=== PATIENT | female | born 1955 | race Caucasian/White ===

== ENCOUNTER → 2020-10-23 10:53 | Outpatient (BNVA) | payer MEDICARE, OTHER, SELFPAY | PROVIDERS: Family Provider Family Medicine; Referring Provider Family Medicine; Visit Provider Orthopaedic Surgery | DX: M54.9 Dorsalgia, unspecified (principal) | CPT/HCPCS: 72072; 72110 ==

== ENCOUNTER → 2020-11-17 12:59 | Outpatient (BNVA) | payer MEDICARE, OTHER, SELFPAY | PROVIDERS: Family Provider Family Medicine; Visit Provider Orthopaedic Surgery | DX: Z01.818 Encounter for other preprocedural examination (principal); Z11.52 Encounter for screening for COVID-19 | CPT/HCPCS: 87635 ==

== ENCOUNTER → 2020-12-31 10:57 | Outpatient (BNVA) | payer MEDICARE, OTHER, SELFPAY | PROVIDERS: PCP Family Medicine; Referring Provider Orthopaedic Surgery; Visit Provider Specialist | DX: M25.561 Pain in right knee (principal); M77.8 Other enthesopathies, not elsewhere classified | CPT/HCPCS: 73560; 73565 ==

== ENCOUNTER 2021-01-04 09:49 | Outpatient (CLI) | payer MEDICARE, OTHER, SELFPAY ==
--- NOTE | 2021-01-04 | MR_ITS ---
WS: [id number] MRI RIGHT KNEE HISTORY: PAIN IN UNSPECIFIED KNEE COMPARISON: Radiograph 12/31/2020 Anterior cruciate ligament: Small amount of fluid along the ACL but no full-thickness tear. Posterior cruciate ligament: Intact. Medial collateral ligament: Mild displacement by an extruded meniscus. Posterior lateral corner structures: Intact. Medial menisci: Abnormal shape, size and signal in the posterior meniscus. Small caliber meniscus wit h increased signal throughout the anterior horn is normal. Lateral meniscus: Intact. Normal signal, size and shape. Extensor mechanism: Distal quadriceps tendon and patellar tendons are intact. Fluid and soft tissue: Small suprapatellar joint effusion. No Ocasio's cyst. Osseous and articular structures: Patellofemoral compartment: Normal. Medial compartment: Very minimal narrowing of the medial compartment. No marrow edema. Cartilage is i ntact. Lateral compartment: Mild narrowing of the lateral compartment. No marrow edema. Mild thinning of the cartilage but no full-thickness defect. Elongated fluid collection extending over length of 1.5 cm x 0.5 cm posterior to the medial femoral c ondyle. Suspect this is probably a meniscal cyst associated with an abnormal posterior medial horn. MR/MR knee RT wo con* [id number] IMPRESSION: 1. Complex tear posterior horn medial meniscus. There is an adjacent 1.5 x 0.5 cm cystic collection posterior to the medial femoral condyle which is probably a meniscal cyst. 2. Small joint effusion.
== END 2021-01-04 09:50 | disposition home or self-care (01) ==
PROVIDERS: PCP Family Medicine; Visit Provider Specialist
DX: M25.561 Pain in right knee (principal); S83.241A Other tear of medial meniscus, current injury, right knee, initial encounter; X58.XXXA Exposure to other specified factors, initial encounter; M25.461 Effusion, right knee
CPT/HCPCS: 73721

== ENCOUNTER → 2021-01-14 09:06 | Outpatient (BNVA) | payer MEDICARE, OTHER, SELFPAY | PROVIDERS: PCP Family Medicine; Visit Provider Orthopaedic Surgery | DX: Z20.822 Contact with and (suspected) exposure to COVID-19 (principal); Z01.812 Encounter for preprocedural laboratory examination | CPT/HCPCS: 87635 ==

== ENCOUNTER 2021-01-18 10:01 | Day surgery (SDC) | payer MEDICARE, OTHER, SELFPAY ==
[2021-01-14 10:02] VITALS: BMI 36.0
--- NOTE | 2021-01-14 10:27 | ANES.PREANE2 ---
Pre-Anesthetic Assessment Pre-Anesthetic Assessment: Height/Weight: Height 1.63 m Weight 95.254 kg Preop Diagnosis: Lumbar stenosis Proposed Procedure: Operation Date: 01/18/21 07:00 Proposed Procedures p Lumbar Spine Decompression right l4/l5 87473 M48.062(Not Applicable) - Yg Cabello, DO Was Beta Nicole taken within 24 hours: N/A Was Clonidine taken within 24 hours: N/A Social: Social History: No alcohol and No tobacco Exam: Pre-Anes Outpt Exam: alert, oriented x 3, clear to auscultation bilaterally and regular rate & rhythm Airway: Submandibular: WNL Cervical ROM: WNL MP: 2 Dentition: Partials CV/HEM: CV/HEM: HTN Metabolic: Metabolic: Hyperlipidemia, Morbid obesity and Thyroid Musc/skel: Musc/skel: Fibromyalgia and Lower Back Pain Comments: Chronic pain Anesthetic Plan: ASA status: 3 Anesthesia: General Risk of > 500 ml blood loss (7ml/kg in children): No PFSH Anesthesia PFSH: Family History Sister Cancer Social History Smoking and tobacco status: never smoked Data Anesthesia Cardiac Studies: No Data to Display
[2021-01-18] VITALS (9 sets, daily range): BP systolic 134–199; BP diastolic 67–83; PULSE 63–86; RESP 12–20; TEMP 36.4–37; O2SAT 93–98
--- NOTE | 2021-01-18 | SCC_ITS ---
Procedure Done: Bilateral L4/5 laminectomy with partial facetectomies 12.7 seconds of fluoroscopic guidance, for a cumulative dose of 6.88 mGy, was provided to Dr. Cabello by the radiology department. C-arm images of the lumbar spine were saved for the patient's permanent record. TRISTA
--- NOTE | 2021-01-18 | XR_ITS ---
WS: [id number] C-ARM RADIOGRAPHS SPINE; 2 IMAGES HISTORY: PAIN COMPARISON: None available. Intraoperative imaging during spine fusion. XR/XR lumbar spine 2-3V* [id number] IMPRESSION: Intraoperative imaging during spine fusion.
--- NOTE | 2021-01-18 10:15 | W.PM.OPSUD ---
Surgery/Procedure H&P Update DATE OF PROCEDURE: January 18, 2021 DATE H&P PERFORMED: 01/07/21 H&P UPDATE INFORMATION: I have reviewed H&P completed within last 30 days, I have examined patient prior to procedure and No changes to prior documentation PREOP DIAGNOSIS: Lumbar stenosis PLANNED PROCEDURE: Operation Date: 01/18/21 12:35 Proposed Procedures p Lumbar Spine Decompression right l4/l5 81083 M48.062(Not Applicable) - Yg Cabello DO
[2021-01-18] MEDS: sodium chloride 0.9% 1,000 ML 30 ML IV (10:30)
--- NOTE | 2021-01-18 11:05 | P.ANESUD_ITS ---
Pre-Anesthetic Update Pre-Anesthetic Assessment: Date of Surgery/Procedure: 01/18/21 Preop Cassidy gnosis: Lumbar stenosis Proposed Procedure: Operation Date: 01/18/21 12:35 Proposed Procedures p Lumbar Spine Decompression right l4/l5 05203 M48.062(Not Applicable) - Yg Cabello, DO Any changes to Pre-Anesthetic Assessment?: No Last Intake: Intake Last Liquid Date 01/17/21 Last Liquid Time 21:00 Last Solid Date 01/17/21 Last Solid Time 21:00 Vitals: Temperature 98.6 F 01/18/21 10:18 Pulse Rate 77 01/18/21 10:18 Pulse Rhythm 01/18/21 10:19 Respiratory Rate 18 01/18/21 10:18 Blood Pressure 199/79 01/18/21 10:18 Blood Pressure Dennise n 119 01/18/21 10:18 Pulse Oximetry 97 01/18/21 10:18 Oxygen Delivery Me thod 01/18/21 10:19 Exam: Pre-Anes Outpt Exam: alert, oriented x 3, clear to auscultation bilaterally and regular rate & rhythm Cardiac Studies: No Data to Display
[2021-01-18] MEDS: clindamycin 600 MG/50 ML PREMIX 100 MG IV (11:35)
--- NOTE | 2021-01-18 12:37 | PM.OP ---
Operative Report Date of procedure: January 18, 2021 Pre-op Diagnosis: Lumbar stenosis Post-op diagnosis: same Procedure Done: Bilateral L4/5 laminectomy with partial facetectomies Surgeon: Yg Cabello Anesthesia: General Estimated blood loss (mL): 5 Condition: stable Disposition: PACU Procedure: Bilateral L4/5 laminectomy with partial facetectomies Patient is brought to the operative suite. After undergoing anesthesia they are placed in the supine position. All areas of impingement are well padded. Patient is then prepped and draped in the normal sterile fashion. A skin incision is made over the L4/5 level. This is confirmed under c-arm guidance. A series of dilators are passed and the tubular retractor is docked on the L4 lamina. A bovie is used to clear the soft tissue off the lamina and the L 4/5 facet joint. A high speed kellen is then used to perform the laminectomy and take down the medial aspect of the L 4/5 facet joint. A kerrison rongeure was then used to take down the remaining lamina and smooth the edged of the laminectomy up to the point where the ligamentum flavum attaches. Attention was then brought to the medial aspect of the facet joint. The remaining medial aspect of the superior and inferior aspect of the facet joint were taken down with the kerrison from the pedicle of L4 to L 5. The facet joint had significant hypertrophy. Attention was then brought to the Ligamentum Flavum. The ligament was taken down from the lamina of L4 to L5 and out medially to the remaining facet joint. The ligament was thick. The dura was then exposed. The dura was in good repair. The L4 nerve was then traced with a curette out the L4/5 foramen and found to be adequately decompressed. The L5 nerve was traced with a curette around the L5 pedicle. The lateral recess was opened with a kerrison helping to further decompress the L5 nerve. The tubular retractor was then tilted to the contralateral side. The bovie was used to take down the soft tissue on the spinous process. The high speed kellen was used to take down the spinous process and then the contralateral lamina of L4. The kerrison rongeur was used to take down the remaining lamina to the point where the ligamentum flavum attached and the ligamentum flavum was taken down from L4 to L5. The kerrison rongeur was then used to reach across and take down the medial aspect of the contralateral L4/5 facet joint.The currete was used to trace the contralateral L4 nerve out the L4/5 foramen to make sure it was decompressed adequatesly and the L5 was traced around the L5 pedicle. The lateral recess was opened further with the kerrison to ensure the L5 is adequately decompressed. Wound is then irrigated copiously with saline and surgiflo is used to stop any bleeding. The tubular retractor is removed and the wound is closed with vicryl and monocryl suture. Glue is then used to protect the wound. A sterile dressing is then placed. Patient was then placed in the supine position and transferred to the PACU in stable condition.
--- NOTE | 2021-01-18 12:49 | P.PCN_ITS ---
PACU note PACU note: VSS, Good respiratory effort, report to TANGLED YARN WORKER Post-Anesthesia Exam: awake
--- NOTE | 2021-01-18 12:49 | PM.PACU ---
PACU note PACU note: VSS, Good respiratory effort, report to LINUX ENGINEER Post-Anesthesia Exam: awake
[2021-01-18] MEDS: HYDROcodone-acetaminophen 5-325 mg Tablet 1 TAB PO (13:24)
--- NOTE | 2021-01-18 14:25 | ANE.PACU2 ---
Inpatient post-anesthesia follow up: Airway intact: Yes Vital signs: Temperature 97.8 F Pulse Rate 63 Respiratory Rate 18 Blood Pressure 148/76 Pulse Oximetry 96 Oxygen Delivery Me thod Room Air Oxygen Flow Rate 2 Fraction of Inspir ed Oxygen Hydration adequate: Yes Nausea and vomiting: No Pain level: 2 Mental status: Baseline
== END 2021-01-18 13:59 | disposition home or self-care (01) ==
PROVIDERS: PCP Family Medicine; Visit Provider Orthopaedic Surgery
PROC: (CPT 63005; principal; 2021-01-18 12:15)
DX: M48.061 Spinal stenosis, lumbar region without neurogenic claudication (principal); I10 Essential (primary) hypertension; E78.5 Hyperlipidemia, unspecified; E66.01 Morbid (severe) obesity due to excess calories; Z68.36 Body mass index [BMI] 36.0-36.9, adult; M79.7 Fibromyalgia; G89.29 Other chronic pain; Z79.891 Long term (current) use of opiate analgesic
CPT/HCPCS: 63047; 72100; 76000; 96365; J1100; J2405; J2704; J2710; J3010; J3490; J7030

== ENCOUNTER → 2023-04-14 08:56 | Outpatient (BNVA) | payer MEDICARE, OTHER, SELFPAY | PROVIDERS: PCP Family Medicine; Visit Provider Surgery | DX: K21.9 Gastro-esophageal reflux disease without esophagitis (principal); R10.11 Right upper quadrant pain | CPT/HCPCS: 99204 ==

== ENCOUNTER 2023-04-19 07:29 | Day surgery (SDC) | payer MEDICARE, OTHER, SELFPAY ==
[2023-04-18 08:25] VITALS: BMI 32.1
[2023-04-19 08:04] VITALS: BP 162/67; PULSE 56; RESP 18; TEMP 36.4; O2SAT 96
--- NOTE | 2023-04-19 08:17 | ANES.PREANE2 ---
Pre-Anesthetic Assessment Height/Weight: Height 1.63 m Weight 84.822 kg Temp Pulse Resp BP Pulse Ox O2 Del Method 97.5 F L 56 L 18 162/67 96 Room Air 04/19/23 08:04 04/19/23 08:04 04/19/23 08:04 04/19/23 08:04 04/19/23 08:04 04/19/23 08:04 Operation Date: 04/19/23 08:45 Proposed Procedures p 87815 egd [id number] colon K21.9,Z12.11(Not Applicable) - DO madeline Diallo Colonoscopy(Not Applicable) - [place] June DO Familial anesthetic complications: None Was Beta Nicole taken within 24 hours: N/A Was Clonidine taken within 24 hours: N/A Last intake: Intake Last Liquid Date 04/18/23 Last Liquid Time 23:00 Last Solid Date 04/17/23 Last Solid Time 23:00 Social No alcohol and No tobacco Exam alert, oriented x 3, clear to auscultation bilaterally and regular rate & rhythm Airway Mallampati: Class II Dentition: partials CV/HEM Hypertension Metabolic Diabetes Mellitus, Morbid Obesity and Thyroid Disease Anesthetic Plan ASA status: 3 Anesthesia: MAC Risk of > 500 ml blood loss (7ml/kg in children): No Medications/Allergies Home Medications Medication Instructions Recorded Confirmed Last Taken Type calcium carbonate 500 mg calcium 1,000 mg PO BID 10/23/20 04/18/23 04/18/23 History (1,250 mg) tablet (Calcium 500) estradiol 1 mg tablet (Estrace) 0.5 mg PO DAILY 10/23/20 04/18/23 04/18/23 History etodolac 400 mg tablet 400 mg PO BID 10/23/20 04/18/23 04/18/23 History gabapentin 300 mg capsule 600 mg PO TID 10/23/20 04/18/23 04/18/23 History gemfibrozil 600 mg tablet 600 mg PO BID 10/23/20 04/18/23 04/18/23 History levothyroxine 50 mcg tablet 25 mcg PO DAILY 10/23/20 04/18/23 04/19/23 04:30 History (Levoxyl) lisinopril 20 mg tablet 20 mg PO DAILY 10/23/20 04/18/23 04/18/23 History lovastatin 40 mg tablet 40 mg PO DAILY 10/23/20 04/18/23 04/18/23 History melatonin 5 mg capsule 10 mg PO DAILY 10/23/20 04/18/23 04/18/23 History multivitamin 1 tab PO DAILY 10/23/20 04/18/23 04/18/23 History omega-3 fatty acids 500 mg capsule 500 mg PO BID 10/23/20 04/18/23 04/18/23 History paroxetine HCl 20 mg tablet 20 mg PO DAILY 10/23/20 04/18/23 04/18/23 History ropinirole 1 mg tablet 1 mg PO DAILY 10/23/20 04/18/23 04/18/23 History vitamin B complex (B 1 tab PO DAILY 10/23/20 04/18/23 04/18/23 History Complex-Vitamin B12 tablet) docusate sodium 50 mg capsule 50 mg PO DAILY 01/14/21 04/18/23 04/18/23 History fluticasone propionate 50 1 spray intranasal BID 01/14/21 04/19/23 2 Weeks Ago History mcg/actuation nasal ~04/05/23 spray,suspension vit D3-folic gufl-K6-U5-B12 500 mg PO DAILY 01/14/21 04/18/23 04/18/23 History Lactobac 51-Bifidobac 1 cap PO 02/04/21 02/04/21 04/17/23 History 3-L.lactis-S.thermophilus 4 billion cell capsule (Daily Probiotic (10 Strains)) naproxen 500 mg tablet 500 mg PO BID 04/14/23 04/18/23 04/18/23 History pantoprazole 40 mg tablet,delayed 40 mg PO BID 6 weeks #84 tabs 04/14/23 04/18/23 04/18/23 Rx release (Protonix) Allergies Allergy/AdvReac Type Severity Reaction Status Date / Time magnesium Allergy Intermediate unknown Verified 04/18/23 08:12 niacin Allergy Intermediate unknown Verified 04/18/23 08:12 aspirin Allergy Mild unknown Verified 04/18/23 08:12 cefixime [From Suprax] Allergy Mild unknown Verified 04/18/23 08:12 Iodine and Iodide Containing Allergy Mild unknown Verified 04/18/23 08:12 Produc Penicillins Allergy Mild unknown Verified 04/18/23 08:12 tramadol [From Ultram] Allergy Mild unknown Verified 04/18/23 08:12 [facility] Anesthesia Medical History (Updated 04/14/23 @ 10:02 by [place] June DO) Arthralgia Chest pain Chronic pain in left foot COPD (chronic obstructive pulmonary disease) Depression Fibromyalgia GERD (gastroesophageal reflux disease) History of IBS Hypertension Hypothyroidism Osteoarthritis Restless leg Surgical History (Updated 04/14/23 @ 10:02 by [place] June DO) History of appendectomy History of cholecystectomy History of hysterectomy Family History Sister Cancer Social History Smoking and tobacco status: never smoked Data Anesthesia Cardiac Studies: No Data to Display
[2023-04-19] MEDS: sodium chloride 0.9% 1,000 ML 30 ML IV (08:19)
[2023-04-19 08:56] LABS: Glucose Point of Care 103 mg/dL (70-110)
--- NOTE | 2023-04-19 09:00 | W.PM.OPSUD ---
Surgery/Procedure H&P Update DATE OF PROCEDURE: April 19, 2023 DATE H&P PERFORMED: 04/14/23 H&P UPDATE INFORMATION: I have reviewed H&P completed within last 30 days, I have examined patient prior to procedure and No changes to prior documentation PLANNED PROCEDURE: Operation Date: 04/19/23 08:45 Proposed Procedures p 60338 egd [id number] colon K21.9,Z12.11(Not Applicable) - DO madeline Diallo Colonoscopy(Not Applicable) - [place] June DO
[2023-04-19 09:23] VITALS: BP 111/45; PULSE 56; RESP 16; TEMP 36.2; O2SAT 97
[2023-04-19 09:37] VITALS: BP 138/67; PULSE 54; RESP 16; O2SAT 93
--- NOTE | 2023-04-19 10:25 | ANE.PACU2 ---
Inpatient post-anesthesia follow up: Airway intact: Yes Vital signs: Temperature 97.2 F Pulse Rate 54 Respiratory Rate 16 Blood Pressure 138/67 Pulse Oximetry 93 Oxygen Delivery Me thod Room Air Oxygen Flow Rate Fraction of Inspir ed Oxygen Hydration adequate: Yes Nausea and vomiting: No Pain level: 1 Mental status: Baseline
== END 2023-04-19 10:26 | disposition home or self-care (01) ==
PROVIDERS: PCP Family Medicine; Visit Provider Surgery
PROC: 0DJ08ZZ Inspection of Upper Intestinal Tract, Via Natural or Artificial Opening Endoscopic (ICD-10-PCS; CPT 43235; principal; 2023-04-19 08:45)
PROC: 0DJD8ZZ Inspection of Lower Intestinal Tract, Via Natural or Artificial Opening Endoscopic (ICD-10-PCS; CPT 45378; 2023-04-19 08:45)
DX: Z12.11 Encounter for screening for malignant neoplasm of colon (principal); K21.9 Gastro-esophageal reflux disease without esophagitis; K29.50 Unspecified chronic gastritis without bleeding; I10 Essential (primary) hypertension; E11.9 Type 2 diabetes mellitus without complications; E66.01 Morbid (severe) obesity due to excess calories; Z68.32 Body mass index [BMI] 32.0-32.9, adult; J44.9 Chronic obstructive pulmonary disease, unspecified; F32.A Depression, unspecified; M79.7 Fibromyalgia; E03.9 Hypothyroidism, unspecified; M19.90 Unspecified osteoarthritis, unspecified site
CPT/HCPCS: 36416; 43239; 45378; 82962; 88305; 88342; G0121; J2704; J7030

== ENCOUNTER → 2023-05-02 10:23 | Outpatient (BNVA) | payer MEDICARE, OTHER, SELFPAY | PROVIDERS: PCP Family Medicine; Visit Provider Surgery | DX: Z09 Encounter for follow-up examination after completed treatment for conditions other than malignant neoplasm (principal); R10.11 Right upper quadrant pain; K21.9 Gastro-esophageal reflux disease without esophagitis; K29.70 Gastritis, unspecified, without bleeding; K59.00 Constipation, unspecified | CPT/HCPCS: 99214 ==

== ENCOUNTER → 2023-07-25 08:29 | Outpatient (BNVA) | payer MEDICARE, OTHER, SELFPAY | PROVIDERS: PCP Family Medicine; Visit Provider Surgery | DX: Z09 Encounter for follow-up examination after completed treatment for conditions other than malignant neoplasm (principal); R10.11 Right upper quadrant pain; K21.9 Gastro-esophageal reflux disease without esophagitis; K29.70 Gastritis, unspecified, without bleeding; K59.00 Constipation, unspecified | CPT/HCPCS: 99214 ==

== ENCOUNTER 2024-04-17 07:42 | Day surgery (SDC) | payer MEDICARE, OTHER, SELFPAY ==
[2024-04-17 07:55] VITALS: BP 133/79; PULSE 66; RESP 18; TEMP 36.6; O2SAT 96
[2024-04-17] MEDS: sodium chloride 0.9% 1,000 ML 30 ML IV (08:09)
[2024-04-17 08:10] LABS: Glucose Point of Care 128 mg/dL (70-110)
--- NOTE | 2024-04-17 08:49 | PM.HP ---
Providers/Chief Complaint Primary Care Provider: José Miguel Aguirre Chief Complaint: K59.00 History of Present Illness Thomas Cali is a 68 year old female Review of Systems General: Reports: 10 or more systems reviewed and unremarkable except in HPI and below Medications/Allergies Home Medications Medication Instructions Recorded Confirmed Last Taken Type calcium carbonate (Calcium 500) 1,000 mg PO BID 10/23/20 04/17/24 04/16/24 History estradiol 1 mg tablet (Estrace) 2 mg PO DAILY 10/23/20 04/17/24 04/16/24 History etodolac 400 mg tablet (Lodine) 400 mg PO BID 10/23/20 04/17/24 04/16/24 History gabapentin 300 mg capsule 600 mg PO QID 10/23/20 04/17/24 04/16/24 History gemfibrozil 600 mg tablet 600 mg PO BID 10/23/20 04/17/24 04/16/24 History levothyroxine 50 mcg tablet 25 mcg PO DAILY 10/23/20 04/11/24 04/17/24 History (Levoxyl) lisinopril 20 mg tablet 20 mg PO DAILY 10/23/20 04/17/24 04/16/24 History lovastatin 40 mg tablet 40 mg PO DAILY 10/23/20 04/17/24 04/16/24 History melatonin 5 mg capsule 10 mg PO DAILY 10/23/20 04/17/24 04/16/24 History multivitamin 1 tab PO DAILY 10/23/20 04/17/24 04/16/24 History omega-3 fatty acids 500 mg capsule 500 mg PO BID 10/23/20 04/17/24 04/16/24 History paroxetine HCl 20 mg tablet (Paxil) 20 mg PO DAILY 10/23/20 04/17/24 04/16/24 History ropinirole 1 mg tablet 1 mg PO DAILY 10/23/20 04/17/24 04/16/24 History fluticasone propionate 50 1 spray intranasal BID PRN Allergy 01/14/21 04/17/24 04/16/24 History mcg/actuation nasal Symptoms spray,suspension vit D3-folic vmca-S4-L0-B12 500 mg PO DAILY 01/14/21 04/17/24 04/16/24 History Lactobac 51-Bifidobac 1 cap PO DAILY 02/04/21 04/17/2404/16/24 History 3-L.lactis-S.thermophilus 4 billion cell capsule (Daily Probiotic (10 Strains)) naproxen 500 mg tablet 500 mg PO BID 04/14/23 04/17/24 04/16/24 History pantoprazole 40 mg tablet,delayed 40 mg PO BID 30 days #60 tabs 10/24/23 04/17/24 04/16/24 Rx release (Protonix) metformin 500 mg tablet 500 mg PO BID 02/12/24 04/17/24 04/16/24 History ferrous sulfate 325 mg (65 mg 325 mg PO DAILY 04/11/24 04/17/24 04/16/24 History iron) tablet (iron) Allergies Allergy/AdvReac Type Severity Reaction Status Date / Time magnesium Allergy Intermediate unknown Verified 04/11/24 09:51 niacin Allergy Intermediate unknown Verified 04/11/24 09:51 aspirin Allergy Mild unknown Verified 04/11/24 09:51 cefixime [From Suprax] Allergy Mild unknown Verified 04/11/24 09:51 Iodine and Iodide Containing Allergy Mild unknown Verified 04/11/24 09:51 Produc Penicillins Allergy Mild unknown Verified 04/11/24 09:51 tramadol [From Ultram] Allergy Mild unknown Verified 04/11/24 09:51 PFSH Acute PFSH: Medical History COPD (chronic obstructive pulmonary disease) Chronic pain in left foot Chest pain Arthralgia Hypothyroidism GERD (gastroesophageal reflux disease) Restless leg Depression Osteoarthritis History of IBS Fibromyalgia Hypertension Surgical History History of cholecystectomy History of hysterectomy History of appendectomy Family History Sister Cancer Social History Smoking and tobacco/nicotine status: never used tobacco/nicotine Vitals/I&O/Wt Last Vital Signs Temp 97.9 F 04/17/24 07:55 Pulse 66 04/17/24 07:55 Resp 18 04/17/24 07:55 BP 133/79 04/17/24 07:55 Pulse Ox 96 04/17/24 07:55 O2 Del Method Room Air 04/17/24 07:55 Weight last 48 hrs Weight 203 lb A&P Assessment and plan (1) Colon cancer screening: Plan Colonoscopy Attestations Medical Necessity Statement*: Home Coding Level of Care Code Acute Code for Chg Fwd Diagnoses Colon cancer screening Z12.11
--- NOTE | 2024-04-17 08:55 | P.ANESASSM_ITS ---
Pre-Anesthetic Assessment Height/Weight: Height 1.63 m Weight 92.079 kg Temp Pulse Resp BP Pulse Ox O2 Del Method 97.9 F 66 18 133/79 96 Room Air 04/17/24 07:55 04/17/24 07:55 04/17/24 07:55 04/17/24 07:55 04/17/24 07:55 04/17/24 07:55 Preop Diagnosis: Gerd, screening Operation Date: 04/17/24 09:15 Proposed Procedures p Colonoscopy 32720, G0105, K29.70, K59.00(Not Applicable) - [place] June DO Familial anesthetic complications: none Was Beta Nicole taken within 24 hours: N/A Was Clonidine taken within 24 hours: N/A Last intake: Intake Last Liquid Date 04/16/24 Last Liquid Time 22:00 Last Solid Date 04/15/24 Last Solid Time 23:00 Social No alcohol and No tobacco Exam alert, oriented x 3 and clear to auscultation bilaterally Airway Mallampati: Class III Dentition: partials History/ROS No significant history except as noted Pulmonary Sleep Apnea (compliant with CPAP) CV/HEM Hypertension None reported Hepatic None reported GI Gastroesophageal Reflux Disease (well controlled with diet) Metabolic Thyroid Disease [facility] [place], [place] None reported Neuropsych None reported Anesthetic Plan ASA status: 3 Anesthesia: Anesthesia Evaluation and MAC Risk of > 500 ml blood loss (7ml/kg in children): No Medications/Allergies Home Medications Medication Instructions Recorded Confirmed Last Taken Type calcium carbonate (Calcium 500) 1,000 mg PO BID 10/23/20 04/17/24 04/16/24 History estradiol 1 mg tablet (Estrace) 2 mg PO DAILY 10/23/20 04/17/24 04/16/24 History etodolac 400 mg tablet (Lodine) 400 mg PO BID 10/23/20 04/17/24 04/16/24 History gabapentin 300 mg capsule 600 mg PO QID 10/23/20 04/17/24 04/16/24 History gemfibrozil 600 mg tablet 600 mg PO BID 10/23/20 04/17/24 04/16/24 History levothyroxine 50 mcg tablet 25 mcg PO DAILY 10/23/20 04/11/24 04/17/24 History (Levoxyl) lisinopril 20 mg tablet 20 mg PO DAILY 0304/17/24 04/16/24 History lovastatin 40 mg tablet 40 mg PO DAILY 10/23/20 04/17/24 04/16/24 History melatonin 5 mg capsule 10 mg PO DAILY 10/23/20 04/17/24 04/16/24 History multivitamin 1 tab PO DAILY 10/23/20 04/17/24 04/16/24 History omega-3 fatty acids 500 mg capsule 500 mg PO BID 10/23/20 04/17/24 04/16/24 History paroxetine HCl 20 mg tablet (Paxil) 20 mg PO DAILY 10/23/20 04/17/24 04/16/24 History ropinirole 1 mg tablet 1 mg PO DAILY 10/23/20 04/17/24 04/16/24 History fluticasone propionate 50 1 spray intranasal BID PRN Allergy 01/14/21 04/17/24 04/16/24 History mcg/actuation nasal Symptoms spray,suspension vit D3-folic ncnc-D4-P0-B12 500 mg PO DAILY 01/14/21 04/17/24 04/16/24 History Lactobac 51-Bifidobac 1 cap PO DAILY 02/04/21 04/17/24 04/16/24 History 3-L.lactis-S.thermophilus 4 billion cell capsule (Daily Probiotic (10 Strains)) naproxen 500 mg tablet 500 mg PO BID 04/14/23 04/17/24 04/16/24 History pantoprazole 40 mg tablet,delayed 40 mg PO BID 30 days #60 tabs 10/24/2304/16/24 Rx release (Protonix) metformin 500 mg tablet 500 mg PO BID 02/12/24 04/17/24 04/16/24 History ferrous sulfate 325 mg (65 mg 325 mg PO DAILY 04/11/24 04/17/24 04/16/24 History iron) tablet (iron) Allergies Allergy/AdvReac Type Severity Reaction Status Date / Time magnesium Allergy Intermediate unknown Verified 04/11/24 09:51 niacin Allergy Intermediate unknown Verified 04/11/24 09:51 aspirin Allergy Mild unknown Verified 04/11/24 09:51 cefixime [From Suprax] Allergy Mild unknown Verified 04/11/24 09:51 Iodine and Iodide Containing Allergy Mild unknown Verified 04/11/24 09:51 Produc Penicillins Allergy Mild unknown Verified 04/11/24 09:51 tramadol [From Ultram] Allergy Mild unknown Verified 04/11/24 09:51 Current Medications Generic Name Dose Route Start Last Admin Trade Name Lei PRN Reason Stop Dose Admin Sodium Chloride 1,000 mls @ 30 mls/hr 04/17/24 08:00 04/17/24 08:09 Sodium Chloride 0.9% IV 04/18/24 07:59 30 mls/hr .Q24H CAMRON Administration PFSH Anesthesia Medical History COPD (chronic obstructive pulmonary disease) Chronic pain in left foot Chest pain Arthralgia Hypothyroidism GERD (gastroesophageal reflux disease) Restless leg Depression Osteoarthritis History of IBS Fibromyalgia Hypertension Surgical History History of cholecystectomy History of hysterectomy History of appendectomy Family History Sister Cancer Social History Smoking and tobacco/nicotine status: never used tobacco/nicotine Data Anesthesia Cardiac Studies: No Data to Display
[2024-04-17 09:43] VITALS: BP 131/58; PULSE 67; RESP 16; TEMP 36.4; O2SAT 95
[2024-04-17 09:55] VITALS: BP 123/53; PULSE 66; RESP 18; O2SAT 95
--- NOTE | 2024-04-17 10:25 | ANE.PACU2 ---
Inpatient post-anesthesia follow up: Airway intact: Yes Vital signs: Temperature 97.6 F Pulse Rate 66 Respiratory Rate 18 Blood Pressure 123/53 Pulse Oximetry 95 Oxygen Delivery Me thod Room Air Oxygen Flow Rate 2 Fraction of Inspir ed Oxygen Hydration adequate: Yes Nausea and vomiting: No Pain level: 1 Mental status: Baseline
== END 2024-04-17 10:25 | disposition home or self-care (01) ==
PROVIDERS: PCP Family Medicine; Visit Provider Surgery
PROC: 0DJD8ZZ Inspection of Lower Intestinal Tract, Via Natural or Artificial Opening Endoscopic (ICD-10-PCS; CPT 45378; principal; 2024-04-17 09:15)
DX: Z12.11 Encounter for screening for malignant neoplasm of colon (principal); K57.30 Diverticulosis of large intestine without perforation or abscess without bleeding; K64.8 Other hemorrhoids; Z79.84 Long term (current) use of oral hypoglycemic drugs; J44.9 Chronic obstructive pulmonary disease, unspecified; E03.9 Hypothyroidism, unspecified; K21.9 Gastro-esophageal reflux disease without esophagitis; M81.0 Age-related osteoporosis without current pathological fracture; M79.7 Fibromyalgia; I10 Essential (primary) hypertension; G47.30 Sleep apnea, unspecified
CPT/HCPCS: 36416; 82962; G0121; J2704; J7030

== ENCOUNTER → 2024-09-09 08:00 | Outpatient (BNVA) | payer MEDICARE, OTHER, SELFPAY | PROVIDERS: PCP Family Medicine; Visit Provider Surgery | DX: K21.9 Gastro-esophageal reflux disease without esophagitis (principal); R10.11 Right upper quadrant pain; K29.70 Gastritis, unspecified, without bleeding; K59.04 Chronic idiopathic constipation | CPT/HCPCS: 99214 ==

== ENCOUNTER 2024-09-18 06:13 | Day surgery (SDC) | payer MEDICARE, SELFPAY ==
[2024-09-18 06:34] VITALS: BP 127/72; PULSE 78; RESP 17; TEMP 36.2; O2SAT 97; BMI 33.6
[2024-09-18] MEDS: sodium chloride 0.9% 500 ML 15 ML IV (06:40)
[2024-09-18 06:45] LABS: Glucose Point of Care 143 mg/dL (70-110)
--- NOTE | 2024-09-18 07:22 | ANES.PREANE2 ---
Pre-Anesthetic Assessment Height/Weight: Height 1.63 m Weight 88.904 kg Temp Pulse Resp BP Pulse Ox O2 Del Method 97.2 F L 78 17 127/72 97 Room Air 09/18/24 06:34 09/18/24 06:34 09/18/24 06:34 09/18/24 06:34 09/18/24 06:34 09/18/24 06:34 Preop Diagnosis: GERD Operation Date: 09/18/24 07:30 Proposed Procedures p EGD 91135, 95695, G0121, K21.9, Z12.11(Not Applicable) - [place] June DO s Colonoscopy(Not Applicable) - [place] June DO Was Beta Nicole taken within 24 hours: N/A Was Clonidine taken within 24 hours: N/A Last intake: Intake Last Liquid Date 09/17/24 Last Liquid Time 23:00 Last Solid Date 09/15/24 Last Solid Time 17:00 Social No alcohol and No tobacco Exam alert, oriented x 3, clear to auscultation bilaterally and regular rate & rhythm Airway Submandibular: within normal limits Cervical ROM: within normal limits Mallampati: Class III Dentition: partials Comments: Comments: upper 4 History/ROS No significant history except as noted Pulmonary Asthma and Chronic Obstructive Pulmonary Disease CV/HEM Hypertension GI Gastroesophageal Reflux [place] [facility] [place] reported Neuropsych Depression Anesthetic Plan ASA status: 3 Anesthesia: MAC Medications/Allergies Home Medications ?Medication ?Instructions ?Recorded ?Confirmed ?Last Taken ?Type calcium carbonate (Calcium 500) 1,000 mg PO BID 10/23/20 09/18/24 09/17/24 History estradiol 1 mg tablet (Estrace) 2 mg PO DAILY 10/23/20 09/18/24 09/17/24 History gabapentin 300 mg capsule 600 mg PO QID 10/23/20 09/18/24 09/17/24 History gemfibrozil 600 mg tablet 600 mg PO BID 10/23/20 09/18/24 09/17/24 History levothyroxine 50 mcg tablet 25 mcg PO DAILY 10/23/20 09/18/24 09/18/24 History (Levoxyl) lisinopril 20 mg tablet 20 mg PO DAILY 10/23/20 09/18/24 09/17/24 History lovastatin 40 mg tablet 40 mg PO DAILY 10/23/20 09/18/24 09/17/24 History melatonin 5 mg capsule 10 mg PO DAILY 10/23/20 09/18/24 09/17/24 History multivitamin 1 tab PO DAILY 10/23/20 09/18/24 09/17/24 History omega-3 fatty acids 500 mg capsule 500 mg PO BID 10/23/20 09/18/24 09/17/24 History paroxetine HCl 20 mg tablet (Paxil) 20 mg PO DAILY 10/23/20 09/18/24 09/17/24 History fluticasone propionate 50 1 spray intranasal BID PRN Allergy 01/14/21 09/18/24 09/15/24 History mcg/actuation nasal Symptoms spray,suspension vit D3-folic [id number] 500 mg PO DAILY 01/14/21 09/18/24 09/17/24 History naproxen 500 mg tablet 500 mg PO BID 04/14/23 09/18/24 09/15/24 History Held on 09/18/24. Instructions: Resume on 09/20/24. metformin 500 mg tablet 500 mg PO BID 02/12/24 09/16/24 09/15/24 History ferrous sulfate 325 mg (65 mg 325 mg PO DAILY 04/11/24 09/18/24 09/17/24 History iron) tablet (iron) EB-N6 1 tab PO DAILY 09/09/24 09/18/24 09/17/24 History cholecalciferol (vitamin D3) 125 125 mcg PO DAILY 09/09/24 09/18/24 09/17/24 History mcg (5,000 unit) capsule gentamicin 0.1 % topical cream 1 applic topical BID 09/09/24 09/18/24 09/17/24 History lubiprostone 24 mcg capsule 24 mcg PO BID 30 days #60 caps 09/09/24 09/18/24 09/17/24 Rx (Amitiza) magnesium 250 mg tablet 250 mg PO DAILY 09/09/24 09/18/24 09/17/24 History pilocarpine HCl 5 mg tablet 5 mg PO TID 09/09/24 09/18/24 09/17/24 History ropinirole 1 mg tablet 2 mg PO BID 09/09/24 09/18/24 09/17/24 History simethicone 125 mg capsule (Gas 125 mg PO DAILY PRN Gastric Reflux 09/09/24 09/18/24 09/17/24 History Relief (simethicone)) triamcinolone acetonide 0.1 % 1 applic topical BID PRN Itching 09/09/24 09/18/24 09/15/24 History topical cream pantoprazole 40 mg tablet,delayed 40 mg PO BID 3 months #180 tabs 09/18/24 Unknown Rx release sucralfate 1 gram tablet 1 g PO BID 4 weeks #56 tabs 09/18/24 Unknown Rx Allergies Allergy/AdvReac Type Severity Reaction Status Date / Time magnesium Allergy Intermediate unknown Verified 09/16/24 10:02 niacin Allergy Intermediate unknown Verified 09/16/24 10:02 aspirin Allergy Mild unknown Verified 09/16/24 10:02 cefixime (From Suprax) Allergy Mild unknown Verified 09/16/24 10:02 Iodine and Iodide Containing Allergy Mild unknown Verified 09/16/24 10:02 Produc Penicillins Allergy Mild unknown Verified 09/16/24 10:02 tramadol (From Ultram) Allergy Mild unknown Verified 09/16/24 10:02 Current Medications Generic Name Dose Route Start Last Admin Trade Name Freq PRN Reason Stop Dose Admin Sodium Chloride 500 mls @ 15 mls/hr 09/18/24 06:19 09/18/24 06:40 Sodium Chloride 0.9% IV 09/19/24 06:18 15 mls/hr .Q24H PRN Administration COLONOSCOPY FLUIDS PFSH Anesthesia Medical History (Updated 09/09/24 @ 08:54 by [place] June DO) COPD (chronic obstructive pulmonary disease) Chronic pain in left foot Chest pain Arthralgia Hypothyroidism GERD (gastroesophageal reflux disease) Restless leg Depression Osteoarthritis History of IBS Fibromyalgia Hypertension Surgical History (Updated 09/09/24 @ 08:54 by [place] June DO) History of lumbar surgery History of bunionectomy Hx of colonoscopy 04/17/24 Dr June History of esophagogastroduodenoscopy (EGD) 04/19/23 History of cholecystectomy History of hysterectomy History of appendectomy Family History Sister Cancer Social History Smoking and tobacco/nicotine status: never used tobacco/nicotine Data Anesthesia Cardiac Studies: No Data to Display
--- NOTE | 2024-09-18 07:41 | W.PM.OPSUD ---
Surgery/Procedure H&P Update DATE OF PROCEDURE: September 18, 2024 DATE H&P PERFORMED: 09/09/24 H&P UPDATE INFORMATION: I have reviewed H&P completed within last 30 days, I have examined patient prior to procedure and No changes to prior documentation PREOP DIAGNOSIS: GERD PLANNED PROCEDURE: Operation Date: 09/18/24 07:30 Proposed Procedures p EGD 02541, 22596, G0121, K21.9, Z12.11(Not Applicable) - DO madeline Diallo Colonoscopy(Not Applicable) - [place] June DO
[2024-09-18 08:22] VITALS: BP 108/56; PULSE 77; RESP 18; TEMP 36.1; O2SAT 94
--- NOTE | 2024-09-18 08:34 | ANES.PREANE2 ---
Pre-Anesthetic Assessment Height/Weight: Height 1.63 m Weight 88.904 kg Temp Pulse Resp BP Pulse Ox O2 Del Method O2 Flow Rate 97 F L 77 18 108/56 94 Nasal Cannula 2 09/18/24 08:22 09/18/24 08:22 09/18/24 08:22 09/18/24 08:22 09/18/24 08:22 09/18/24 08:22 09/18/24 08:22 Preop Diagnosis: GERD Operation Date: 09/18/24 07:30 Proposed Procedures p EGD 01808, 62013, G0121, K21.9, Z12.11(Not Applicable) - [place] June DO s Colonoscopy(Not Applicable) - [place] June DO Was Beta Nicole taken within 24 hours: N/A Was Clonidine taken within 24 hours: N/A Last intake: Intake Last Liquid Date 09/17/24 Last Liquid Time 23:00 Last Solid Date 09/15/24 Last Solid Time 17:00 Social No alcohol and No tobacco Exam alert, oriented x 3, clear to auscultation bilaterally and regular rate & rhythm Airway Submandibular: within normal limits Cervical ROM: within normal limits Mallampati: Class III Dentition: partials Comments: Comments: upper 4 History/ROS No significant history except as noted Pulmonary Asthma and Chronic Obstructive Pulmonary Disease CV/HEM Hypertension GI Gastroesophageal Reflux Disease [facility] [place] reported Neuropsych Depression Anesthetic Plan ASA status: 3 Anesthesia: MAC Medications/Allergies Home Medications ?Medication ?Instructions ?Recorded ?Confirmed ?Last Taken ?Type calcium carbonate (Calcium 500) 1,000 mg PO BID 10/23/20 09/18/24 09/17/24 History estradiol 1 mg tablet (Estrace) 2 mg PO DAILY 10/23/20 09/18/24 09/17/24 History gabapentin 300 mg capsule 600 mg PO QID 10/23/20 09/18/24 09/17/24 History gemfibrozil 600 mg tablet 600 mg PO BID 10/23/20 09/18/24 09/17/24 History levothyroxine 50 mcg tablet 25 mcg PO DAILY 10/23/20 09/18/24 09/18/24 History (Levoxyl) lisinopril 20 mg tablet 20 mg PO DAILY 10/23/20 09/18/24 09/17/24 History lovastatin 40 mg tablet 40 mg PO DAILY 10/23/20 09/18/24 09/17/24 History melatonin 5 mg capsule 10 mg PO DAILY 10/23/20 09/18/24 09/17/24 History multivitamin 1 tab PO DAILY 10/23/20 09/18/24 09/17/24 History omega-3 fatty acids 500 mg capsule 500 mg PO BID 10/23/20 09/18/24 09/17/24 History paroxetine HCl 20 mg tablet (Paxil) 20 mg PO DAILY 10/23/20 09/18/24 09/17/24 History fluticasone propionate 50 1 spray intranasal BID PRN Allergy 01/14/21 09/18/24 09/15/24 History mcg/actuation nasal Symptoms spray,suspension vit D3-folic [id number] 500 mg PO DAILY 01/14/21 09/18/24 09/17/24 History naproxen 500 mg tablet 500 mg PO BID 04/14/23 09/18/24 09/15/24 History Held on 09/18/24. Instructions: Resume on 09/20/24. metformin 500 mg tablet 500 mg PO BID 02/12/24 09/16/24 09/15/24 History ferrous sulfate 325 mg (65 mg 325 mg PO DAILY 04/11/24 09/18/24 09/17/24 History iron) tablet (iron) EB-N6 1 tab PO DAILY 09/09/24 09/18/24 09/17/24 History cholecalciferol (vitamin D3) 125 125 mcg PO DAILY 09/09/24 09/18/24 09/17/24 History mcg (5,000 unit) capsule gentamicin 0.1 % topical cream 1 applic topical BID 09/09/24 09/18/24 09/17/24 History lubiprostone 24 mcg capsule 24 mcg PO BID 30 days #60 caps 09/09/24 09/18/24 09/17/24 Rx (Amitiza) magnesium 250 mg tablet 250 mg PO DAILY 09/09/24 09/18/24 09/17/24 History pilocarpine HCl 5 mg tablet 5 mg PO TID 09/09/24 09/18/24 09/17/24 History ropinirole 1 mg tablet 2 mg PO BID 09/09/24 09/18/24 09/17/24 History simethicone 125 mg capsule (Gas 125 mg PO DAILY PRN Gastric Reflux 09/09/24 09/18/24 09/17/24 History Relief (simethicone)) triamcinolone acetonide 0.1 % 1 applic topical BID PRN Itching 09/09/24 09/18/24 09/15/24 History topical cream pantoprazole 40 mg tablet,delayed 40 mg PO BID 3 months #180 tabs 09/18/24 Unknown Rx release sucralfate 1 gram tablet 1 g PO BID 4 weeks #56 tabs 09/18/24 Unknown Rx Allergies Allergy/AdvReac Type Severity Reaction Status Date / Time magnesium Allergy Intermediate unknown Verified 09/16/24 10:02 niacin Allergy Intermediate unknown Verified 09/16/24 10:02 aspirin Allergy Mild unknown Verified 09/16/24 10:02 cefixime (From Suprax) Allergy Mild unknown Verified 09/16/24 10:02 Iodine and Iodide Containing Allergy Mild unknown Verified 09/16/24 10:02 Produc Penicillins Allergy Mild unknown Verified 09/16/24 10:02 tramadol (From Ultram) Allergy Mild unknown Verified 09/16/24 10:02 Current Medications Generic Name Dose Route Start Last Admin Trade Name Freq PRN Reason Stop Dose Admin Sodium Chloride 500 mls @ 15 mls/hr 09/18/24 06:19 09/18/24 08:27 Sodium Chloride 0.9% IV 09/19/24 06:18 Infused .Q24H PRN Infusion COLONOSCOPY FLUIDS PFSH Anesthesia Medical History (Updated 09/09/24 @ 08:54 by [place] June DO) COPD (chronic obstructive pulmonary disease) Chronic pain in left foot Chest pain Arthralgia Hypothyroidism GERD (gastroesophageal reflux disease) Restless leg Depression Osteoarthritis History of IBS Fibromyalgia Hypertension Surgical History (Updated 09/09/24 @ 08:54 by [place] June DO) History of lumbar surgery History of bunionectomy Hx of colonoscopy 04/17/24 Dr June History of esophagogastroduodenoscopy (EGD) 04/19/23 History of cholecystectomy History of hysterectomy History of appendectomy Family History Sister Cancer Social History Smoking and tobacco/nicotine status: never used tobacco/nicotine Data Anesthesia Cardiac Studies: No Data to Display
[2024-09-18 08:40] VITALS: BP 112/64; PULSE 81; RESP 18; O2SAT 94
--- NOTE | 2024-09-18 08:55 | ANE.PACU2 ---
Inpatient post-anesthesia follow up: Airway intact: Yes Vital signs: Temperature 97 F Pulse Rate 81 Respiratory Rate 18 Blood Pressure 112/64 Pulse Oximetry 94 Oxygen Delivery Me thod Room Air Oxygen Flow Rate 2 Fraction of Inspir ed Oxygen Hydration adequate: Yes Nausea and vomiting: No Pain level: 1 Mental status: Baseline
== END 2024-09-18 08:57 | disposition home or self-care (01) ==
PROVIDERS: PCP Family Medicine; Visit Provider Surgery
PROC: 0DJ08ZZ Inspection of Upper Intestinal Tract, Via Natural or Artificial Opening Endoscopic (ICD-10-PCS; principal; 2024-09-18 07:30)
PROC: 0DJD8ZZ Inspection of Lower Intestinal Tract, Via Natural or Artificial Opening Endoscopic (ICD-10-PCS; CPT 45378; 2024-09-18 07:30)
DX: Z12.11 Encounter for screening for malignant neoplasm of colon (principal); K21.9 Gastro-esophageal reflux disease without esophagitis; K25.9 Gastric ulcer, unspecified as acute or chronic, without hemorrhage or perforation; E03.9 Hypothyroidism, unspecified; M79.7 Fibromyalgia; I10 Essential (primary) hypertension; Z79.899 Other long term (current) drug therapy; Z79.890 Hormone replacement therapy; K59.04 Chronic idiopathic constipation
CPT/HCPCS: 36416; 43239; 45378; 82962; 88305; 88342; G0121; J2704; J7040

== ENCOUNTER → 2024-09-30 11:09 | Outpatient (BNVA) | payer MEDICARE, SELFPAY | PROVIDERS: PCP Family Medicine; Visit Provider Surgery | DX: Z09 Encounter for follow-up examination after completed treatment for conditions other than malignant neoplasm (principal); K59.04 Chronic idiopathic constipation; K27.9 Peptic ulcer, site unspecified, unspecified as acute or chronic, without hemorrhage or perforation; R10.9 Unspecified abdominal pain; R14.0 Abdominal distension (gaseous) | CPT/HCPCS: 99214 ==

== ENCOUNTER → 2024-10-31 09:00 | Outpatient (BNVA) | payer MEDICARE, SELFPAY | PROVIDERS: PCP Family Medicine; Visit Provider Student in an Organized Health Care Education/Training Program | DX: Z09 Encounter for follow-up examination after completed treatment for conditions other than malignant neoplasm (principal) | CPT/HCPCS: 99213 ==

== ENCOUNTER → 2025-06-05 07:41 | Outpatient (BNVA) | payer MEDICARE, OTHER, SELFPAY | PROVIDERS: PCP Family Medicine; Visit Provider Nurse Practitioner Family | DX: L57.8 Other skin changes due to chronic exposure to nonionizing radiation (principal); L81.4 Other melanin hyperpigmentation; D22.5 Melanocytic nevi of trunk; D23.72 Other benign neoplasm of skin of left lower limb, including hip; L82.1 Other seborrheic keratosis; L82.0 Inflamed seborrheic keratosis; Z78.9 Other specified health status; L29.89 Other pruritus; L53.8 Other specified erythematous conditions; R20.8 Other disturbances of skin sensation; L91.8 Other hypertrophic disorders of the skin | CPT/HCPCS: 17000; 17110; 99203 ==

== ENCOUNTER → 2025-07-17 14:02 | Outpatient (BNVA) | payer MEDICARE, OTHER, SELFPAY | PROVIDERS: PCP Family Medicine; Visit Provider Orthopaedic Surgery | DX: M48.062 Spinal stenosis, lumbar region with neurogenic claudication (principal) | CPT/HCPCS: 72110; 99213 ==

== ENCOUNTER 2025-07-25 13:31 | Outpatient (CLI) | payer MEDICARE, OTHER, SELFPAY ==
--- NOTE | 2025-07-25 13:45 | MR_ITS ---
WS: [id number] MRI LUMBAR SPINE NONCONTRAST TECHNIQUE: Sagittal T1, T2 and STIR imaging. Axial T1 and T2 imaging. CLINICAL INFORMATION: COMPARISON: MRI 10/16/2020 FINDINGS: Mild lumbar curve. No acute compression. Grade 1 anterolisthesis L4 on L5. Laminectomy defects L4-5. L1-L2: Mild annular bulging. Spinal canal and foramen are patent. L2-L3: Mild annular bulging. Slight narrowing LEFT subarticular recess. Mild facet arthropathy. Mild LEFT foraminal narrowing. L3-L4: Mild annular bulging. Impingement RIGHT subarticular recess and traversing RIGHT L4 nerve root. Recommend correlation RIGHT L4 nerve root symptoms. This is progressed compared to previous. L4-L5: Grade 1 anterolisthesis. Laminectomy defects are new. Mild residual central canal stenosis with narrowing of the subarticular recess bilaterally. Moderate facet arthropathy. RIGHT foraminal protrusion with mild RIGHT foraminal narrowing. L5-S1: Mild annular bulging with impingement on traversing LEFT greater than RIGHT S1 nerve roots. Moderate LEFT foraminal narrowing appears progressed. Moderate facet arthropathy. Visualized pelvic bony structures: Normal. Paravertebral soft tissues: Normal. MR/MR lumbar spine wo con* [id number] IMPRESSION: 1. Presumed calcified disc extrusion at T12-L1 with peripheral ossification is essentially unchanged in appearance since 2020. Mild effacement of the ventral thecal sac. Spinal canal remains patent. Foramen are patent at this level. 2. Disc bulging L3-4 with impingement RIGHT subarticular recess is progressed. Recommend correlation RIGHT L4 nerve root symptoms. Moderate facet arthropathy . 3. Mild central canal stenosis L4-5 impinges the traversing LEFT greater than RIGHT L5 nerve roots in the subarticular recess. Grade 1 anterolisthesis at thi s level. Laminectomy defects are new compared to 2021 with improved central can al stenosis. 4. Mild RIGHT L4-5 foraminal narrowing. 5. Disc bulging L5-S1 impinges the traversing LEFT S1 nerve root in the subart icular recess. Moderate LEFT foraminal narrowing appears progressed
== END 2025-07-25 13:32 | disposition home or self-care (01) ==
LOC: RAD 13:32
PROVIDERS: PCP Family Medicine; Visit Provider Orthopaedic Surgery
DX: M51.369 Other intervertebral disc degeneration, lumbar region without mention of lumbar back pain or lower extremity pain (principal); M48.061 Spinal stenosis, lumbar region without neurogenic claudication; M48.07 Spinal stenosis, lumbosacral region; M47.816 Spondylosis without myelopathy or radiculopathy, lumbar region; M47.817 Spondylosis without myelopathy or radiculopathy, lumbosacral region
CPT/HCPCS: 72148

== ENCOUNTER → 2025-07-29 07:46 | Outpatient (BNVA) | payer MEDICARE, OTHER, SELFPAY | PROVIDERS: PCP Family Medicine; Visit Provider Orthopaedic Surgery | DX: Z01.818 Encounter for other preprocedural examination (principal); M48.062 Spinal stenosis, lumbar region with neurogenic claudication; E11.65 Type 2 diabetes mellitus with hyperglycemia | CPT/HCPCS: 36415; 80053; 81001; 83036; 85025; 99214 ==